=== PATIENT | female | born 1975 | race Caucasian/White ===

== ENCOUNTER 2017-10-23 16:07 | Inpatient (IN) | payer OTHER ==
[~2017-10-23] VITALS: Ht 157.5 cm; Wt 65.9 kg
[2017-10-23] MEDS ORDERED: MIDAZOLAM 1 MG/ML, 2ML IVPush ONE (16:30)
[2017-10-23] MEDS ORDERED: MORPHINE SULFATE 4 MG/ML, 1ML IVPush PRN ×3 (16:30→22:00)
[2017-10-23] MEDS ORDERED: KETAMINE 100 MG/ML, 5ML IV ONE (16:30)
[2017-10-23] MEDS ORDERED: ONDANSETRON ODT 4 MG PO ONE (16:30)
[2017-10-23] MEDS ORDERED: SODIUM CHLORIDE FLUSH 10ML SYR IVF ONE (16:30)
[2017-10-23] MEDS ORDERED: KETAMINE 100 MG/ML, 5ML IVPush ONE (16:30)
[2017-10-23] MEDS ORDERED: KETAMINE 10 MG/ML, 20ML ONE (16:36)
[2017-10-23] MEDS ORDERED: MIDAZOLAM 1 MG/ML, 2ML ONE (16:45)
[2017-10-23] MEDS ORDERED: KETAMINE 10 MG/ML, 20ML IV ONE (17:00)
[2017-10-23] MEDS ORDERED: MORPHINE SULFATE 4 MG/ML, 1ML ONE (17:34)
[2017-10-23] MEDS ORDERED: ONDANSETRON ODT 4 MG ONE (17:34)
[2017-10-23] MEDS ORDERED: ONDANSETRON ODT 4 MG PO PRN (18:00)
[2017-10-23 19:35] VITALS: BP 128/80
[2017-10-23] MEDS ORDERED: OXYcodone ORAL.CONC 20 MG/ML PO PRN (20:00)
[2017-10-23] MEDS ORDERED: OXYcodone 5 MG/5 ML ORAL.SOL UDC PO PRN (20:00)
[2017-10-23] MEDS ORDERED: OXYcodone IR 5MG TABLET PO PRN (20:30)
[2017-10-23 21:06] LABS: HCG UR SG < 1.005 (1.003-1.030)
[2017-10-23] MEDS: KETOROLAC 30 MG/1 ML IV SCH (21:57)
[2017-10-24 00:51] VITALS: BP 110/70
[2017-10-24] MEDS: KETOROLAC 30 MG/1 ML IV SCH ×2 (05:47→13:44)
[2017-10-24 07:08] VITALS: BP 112/74
[2017-10-24 13:12] VITALS: BP 125/85
[2017-10-24] MEDS ORDERED: BACITRACIN 50,000 UNIT ONE (15:20)
[2017-10-24] MEDS ORDERED: BUPIVACAINE/PF-EPI 0.5% 1:200K ONE (15:20)
[2017-10-24] MEDS ORDERED: MIDAZOLAM 1 MG/ML, 2ML ONE (15:26)
[2017-10-24] MEDS ORDERED: FENTANYL PF 250 MCG/5ML ONE (15:27)
[2017-10-24] MEDS ORDERED: SCOPOLAMINE PATCH, 1.5MG PATCH.TD72 TD ONE ×2 (15:43→15:54)
[2017-10-24] MEDS ORDERED: GABAPENTIN 300 MG CAPSULE ONE ×2 (15:43→15:44)
[2017-10-24] MEDS ORDERED: ACETAMINOPHEN 500 MG TABLET ONE ×2 (15:43)
[2017-10-24] MEDS ORDERED: OxyconTIN ER 20 MG TAB.ER ONE ×2 (15:43→15:47)
[2017-10-24] MEDS ORDERED: ONDANSETRON ODT 8 MG ONE ×2 (15:43→15:44)
[2017-10-24] MEDS ORDERED: DEXAMETHASONE 4 MG/ML, 1ML ONE (15:54)
[2017-10-24] MEDS ORDERED: KETAMINE 100 MG/ML, 5ML ONE (15:54)
[2017-10-24] MEDS ORDERED: PROPOFOL 10 MG/ML, 20ML ONE (15:54)
[2017-10-24] MEDS ORDERED: CEFAZOLIN 1,000 MG ONE (15:54)
[2017-10-24] MEDS ORDERED: OXYcodone 5 MG/5 ML ORAL.SOL UDC PO PRN (17:00)
[2017-10-24] MEDS ORDERED: PROMETHAZINE 25 MG/ML, 1ML IV PRN (17:00)
[2017-10-24] MEDS ORDERED: hydrALAzine 20 MG/ML, 1ML IV PRN (17:00)
[2017-10-24] MEDS ORDERED: morphine SULFATE 10 MG/ML, 1ML IV PRN (17:00)
[2017-10-24] MEDS ORDERED: FENTANYL PF 100 MCG/2ML IV PRN (17:00)
[2017-10-24] MEDS ORDERED: MEPERIDINE/PF 25MG/0.5ML IVPush PRN (17:00)
[2017-10-24] MEDS ORDERED: LABETALOL 5MG/ML, 20ML IV PRN (17:00)
[2017-10-24 19:17] VITALS: BP 113/67
[2017-10-24] MEDS ORDERED: OXYC5TAB2 PO (19:49)
[2017-10-24] MEDS ORDERED: ONDA4TAB7 PO (19:50)
== END 2017-10-24 20:21 | disposition home or self-care (01) | DRG 494 ==
LOC: ED 18:16 → EDIP 18:33 → 4NOR 19:32
PROVIDERS: ADMIT Orthopaedic Surgery; ATTEND Orthopaedic Surgery
PROC: 0QSH04Z Reposition Left Tibia with Internal Fixation Device, Open Approach (ICD-10-PCS; 2017-10-24)
PROC: 0QSK04Z Reposition Left Fibula with Internal Fixation Device, Open Approach (ICD-10-PCS; principal; 2017-10-24 14:30)
DX: S82.842A Displaced bimalleolar fracture of left lower leg, initial encounter for closed fracture (principal); G31.2 Degeneration of nervous system due to alcohol; W18.30XA Fall on same level, unspecified, initial encounter; Z72.0 Tobacco use; Y93.89 Activity, other specified; Y92.89 Other specified places as the place of occurrence of the external cause; Y99.8 Other external cause status
CPT/HCPCS: 27840; 76000; 81025; 96374; 96375; 99152; 99153; C1713; J0690; J1100; J1885; J2250; J2704; J3010; Q0162